=== PATIENT | male | born 1970 | race Two or more races ===

== ENCOUNTER 2017-08-02 11:04 | Emergency (ER) | payer MEDICAID ==
[~2017-08-02] VITALS: Ht 180.3 cm; Wt 78.9 kg
[~2017-08-02 11:04] MED LIST: BUTA-91; ONDANSETRON HCL 4 MG TABLET
[2017-08-02 11:07] VITALS: BP 135/73
== END 2017-08-02 13:22 | disposition home or self-care (01) ==
LOC: ER 11:04
DX: G44.209 Tension-type headache, unspecified, not intractable (principal)
CPT/HCPCS: 70450